=== PATIENT | male | born 1995 | race Caucasian/White ===

== ENCOUNTER 2018-03-07 22:08 | Emergency (ER) | payer BC | END 2018-03-08 01:55 | disposition home or self-care (01) | LOC: FTE 22:08 | DX: S09.90XA Unspecified injury of head, initial encounter (principal); R51 Headache; V21 Motorcycle rider injured in collision with pedal cycle | CPT/HCPCS: 70450; 99284-25 ==